=== PATIENT | female | born 1975 | race Caucasian/White ===

== ENCOUNTER 2018-11-10 15:28 | Emergency (ER) | payer MEDICAID ==
[~2018-11-10] VITALS: Ht 157.5 cm; Wt 63.3 kg
[2018-11-10 15:42] VITALS: Ht 157.5 cm; Wt 63.3 kg
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
[2018-11-10] MEDS ORDERED: ACET325T33 PO (20:59)
[2018-11-10] MEDS ORDERED: BACL10TA PO (20:59)
[2018-11-10] MEDS ORDERED: IBUP-1561 PO (20:59)
[2018-11-10 22:03] VITALS: BP 122/70; PULSE 60; RESP 18
== END 2018-11-10 22:04 | disposition home or self-care (01) ==
LOC: FTE 15:28
DX: M54.2 Cervicalgia (principal)
CPT/HCPCS: 72040; Z7502